=== PATIENT | female | born 2005 | race Caucasian/White ===

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

== ENCOUNTER 2024-01-29 10:53 | Outpatient (CLI) | payer MEDICAID, OTHER ==
[2024-01-29 17:52] LABS: HCT - HEMATOCRIT 36.7 % (37.0-47.0); HGB - HEMOGLOBIN 11.6 g/dL (12.0-16.0); MEAN CORPUSCULAR HEMOGLOBIN 29.6 pg (27.0-31.0); MEAN CORPUSCULAR HGB CONC 31.6 g/dL (32.0-36.0); MEAN CORPUSCULAR VOLUME 93.6 fL (81.0-99.0); MEAN PLATELET VOLUME 11.2 fL (7.9-10.8); RED BLOOD COUNT 3.92 10^6/uL (4.20-5.40); WHITE BLOOD COUNT 13.2 x10^3/uL (4.8-10.8)
== END 2024-01-29 10:54 | disposition home or self-care (01) ==
LOC: LAB.N 10:53
PROVIDERS: ATTEND Obstetrics & Gynecology
DX: Z34.00 Encounter for supervision of normal first pregnancy, unspecified trimester (principal); Z36.8A Encounter for antenatal screening for other genetic defects; Z36.89 Encounter for other specified antenatal screening
CPT/HCPCS: 36415; 82950; 85027

== ENCOUNTER 2024-02-26 22:11 | Emergency (ER) | payer OTHER, MEDICAID ==
[2024-02-26 23:07] LABS: RAPID STREP SCREEN Negative (Negative)
[2024-02-26 23:51] LABS: B. PARAPERTUSSIS- RESP PCR PAN NOT DETECTED; B. PERTUSSIS- RESP PCR PANEL NOT DETECTED; C. PNEUMONIAE- RESP PCR PANEL NOT DETECTED; CORONAVIRUS 229E-RESP PCR NOT DETECTED; CORONAVIRUS HKU1-RESP PCR NOT DETECTED; CORONAVIRUS NL63-RESP PCR NOT DETECTED; CORONAVIRUS OC43-RESP PCR NOT DETECTED; HUMAN METAPNEUMOVIRUS NOT DETECTED; INFLUENZA A- RESP PCR PANEL NOT DETECTED; INFLUENZA B - RESP PCR PANEL NOT DETECTED; M. PNEUMONIAE- RESP PCR PANEL NOT DETECTED; PARAINFLUENZA VIRUS 1 NOT DETECTED; PARAINFLUENZA VIRUS 2 NOT DETECTED; PARAINFLUENZA VIRUS 3 NOT DETECTED; PARAINFLUENZA VIRUS 4 NOT DETECTED; RHINOVIRUS/ENTEROVIRUS NOT DETECTED; RSV- RESP PCR PANEL NOT DETECTED
[2024-02-26 23:52] LABS: SARS-CoV-2 -RESP PCR PANEL DETECTED
--- NOTE | 2024-02-26 23:56 | ED Physician Documentation ---
History of Present Illness - Stated complaint Stated Complaint: SORE THROAT/COUGH - Chief complaint Chief Complaint: Heent - History obtained from History obtained from: Patient - Additonal information Additional information: 18yF currently p/w URI symptoms X 2-3 days without fever. sore throat, cough. PD PAST MEDICAL HISTORY - Past Medical History Past Medical History: Yes Cardiovascular: None Respiratory: None Neuro: None Endocrine/Autoimmune: None GI: None : None HEENT: None, Other Psych: Depression, Anxiety Musculoskeletal: None Derm: None Other Past Medical History: tonsilitis. 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 - Allergies Allergies/Adverse Reactions: Allergies Allergy/AdvReac Type Severity Reaction Status Date / Time aspirin Allergy Unknown Verified 02/26/24 22:27 Penicillins Allergy Unknown Verified 02/26/24 22:27 - Social History Does the pt smoke?: No Smoking Status: Never smoker Does the pt drink ETOH?: No Does the pt have substance abuse?: No - Immunizations Immunizations are current?: Yes - POLST Patient has POLST: No PD ED PE NORMAL - Vitals Vital signs reviewed: Yes - General General: Alert and oriented X 3, No acute distress, Well developed/nourished - HEENT HEENT: Atraumatic, PERRL, EOMI - Neck Neck: Supple, no meningeal sign - Cardiac Cardiac: RRR - Respiratory Respiratory: No respiratory distress, Clear bilaterally - Abdomen Abdomen: Non tender, Non distended, Other (gravid uterus. heart tones within normal limits) - Derm Derm: Normal color, Warm and dry Results - Vitals Vitals: Vital Signs - 24 hr 02/26/24 02/26/24 22:23 23:33 Temperature 36.5 C 36.2 C L Heart Rate 130 H 108 H Respiratory 18 18 Rate Blood Pressure 129/77 118/68 O2 Saturation 98 99 Oxygen O2 Source Room air - Labs Labs: Laboratory Tests 02/26/24 02/26/24 22:30 22:30 Nasal Adenovirus (PCR) NOT DETECTED Nasal B. parapertussis DNA (PCR) NOT DETECTED Nasal Coronavir 229E PCR NOT DETECTED Nasal Coronavir HKU1 PCR NOT DETECTED Nasal Coronavir NL63 PCR NOT DETECTED Nasal Coronavir OC43 PCR NOT DETECTED Nasal Enterovir/Rhinovir PCR NOT DETECTED Nasal Influenza B PCR NOT DETECTED Nasal Influenza A PCR NOT DETECTED Nasal Parainfluen 1 PCR NOT DETECTED Nasal Parainfluen 2 PCR NOT DETECTED Nasal Parainfluen 3 PCR NOT DETECTED Nasal Parainfluen 4 PCR NOT DETECTED Nasal RSV (PCR) NOT DETECTED Nasal B.pertussis DNA PCR NOT DETECTED Nasal C.pneumoniae (PCR) NOT DETECTED [place] Human Metapneumo PCR NOT DETECTED Nasal M.pneumoniae (PCR) NOT DETECTED Nasal SARS-CoV-2 (PCR) DETECTED A Group A Strep Rapid Negative PD Medical Decision Making - ED course ED course: 18yF p/w viral uri X 2-3 days, found to have covid. symptomatic care discussed. return precautions given. plan to f/u with pcp. Departure - Departure Disposition: 01 Home, Self Care Clinical Impression: Viral URI with cough, COVID Condition: Stable Instructions: ED Viral Syndrome Comments: You are seen in the emergency department for COVID, a viral upper respiratory infection. Please follow-up with your primary care provider and with your employer for further recommendations. At a minimum you should have 24 hours with improving symptoms and with no fever before returning to work. Forms: PCP List, Activity restrictions Discharge Date/Time: 02/26/24 23:59
[2024-02-27 00:03] VITALS: BP 118/68; O2SAT 99
== END 2024-02-26 23:59 | disposition home or self-care (01) ==
LOC: ED 22:11
DX: O98.519 Other viral diseases complicating pregnancy, unspecified trimester (principal); U07.1 COVID-19; O99.519 Diseases of the respiratory system complicating pregnancy, unspecified trimester; J06.9 Acute upper respiratory infection, unspecified
CPT/HCPCS: 87070; 87430; 87633; 99282; 99283

== ENCOUNTER 2024-03-31 12:46 | Outpatient (CLI) | payer OTHER, MEDICAID ==
--- NOTE | 2024-03-31 16:14 | Ultrasound Report ---
PROCEDURE: OB Follow up INDICATIONS: EXCESSIVE WEIGHT GAIN IN OUTSIDE/PRIOR DATING DATA: Last menstrual period (LMP): 07/25/2023. LMP-based estimated date of delivery (MARCO): 04/30/2024. First dating scan (date and location): 09/17/2023. Estimated date of delivery (MARCO) from first dating scan: 04/27/2024. The below data below was generated using the LMP MARCO of 09/30/2023 TECHNIQUE: Real-time scanning was performed of the fetus, with image documentation and biometric measurements. Endovaginal scanning: Not performed. COMPARISON: 12/11/2023 FINDINGS: General: A single living intrauterine gestation is present. Presentation: Vertex Placenta: Placental position is posterior, without previa. Amniotic fluid index: 18.1 cm, within normal limits for gestational age. (73rd percentile) heart rate: 141 beats per minute. Maternal cervical canal: 3.5 cm long; normal length is 2.5 cm or more. biometrics: Biparietal diameter: 9.07 cm, 36 weeks and 5 days (83rd percentile) Head circumference: 32.17 cm, 36 weeks and 2 days (32nd percentile) Abdominal circumference: 32.78 cm, 36 weeks and 5 days (84th percentile) Femur length: 7.49 cm, 38 weeks and 2 days (95th percentile) Estimated gestational age from initial scan: 3106.5 g correlating with the 85th percentile for gestat ional age Composite gestational age from present scan: 37 weeks and 0 days Estimated weight and percentile: 35 weeks and 5 days Measurement variability in biometric dating: +/- 10 days from 12-20 weeks gestation, +/- 2 weeks from 20-30 weeks gestation, +/- 3 weeks at 30 weeks gestation or more. Other: Not applicable. IMPRESSION: Single living intrauterine gestation with estimated sonographic gestational age of approximately 37 w eeks and 0 days. Estimated weight of approximately 3106.5 g correlating with the 85th percentil e for gestational age. Normal/expected interval growth has occurred. Four-quadrant KETTY measuring 18.1 cm with largest vertical pocket measuring 6.7 cm. Reviewed by: Severino Morales MD on 03/31/2024 4:12 PM PDT Approved by: Severino Morales MD on 03/31/2024 4:12 PM PDT Station ID: [id number]
== END 2024-03-31 12:47 | disposition home or self-care (01) ==
LOC: DI 12:46
PROVIDERS: ATTEND Nurse Practitioner
DX: O26.03 Excessive weight gain in pregnancy, third trimester (principal); Z3A.37 37 weeks gestation of pregnancy

== ENCOUNTER 2024-04-01 15:09 | Outpatient (CLI) | payer OTHER, MEDICAID ==
[2024-04-01 16:25] LABS: RUPTURE OF MEMBRANES PLUS NEGATIVE (NEGATIVE)
--- NOTE | 2024-04-01 16:35 | PROVIDER PROGRESS NOTE ---
- HPI Chief Complaint: Labor - Procedures OB Procedure Performed: NST Diagnosis/Indication for NST: labor NST Procedure: EFM: 150s, moderate variability, positive 15x15 accelerations, no decelerations [place]: occasional contractions NST reactive/Cat 1 Performed and read 04/01/24 Service Date of procedure: 04/01/24 - Plan Plan: 19yo at 35.6w presenting with concern of leaking fluid. She thought she had a gush last night but none today. Occasional contractions, no bleeding. Good movement. care at [facility]. VSS GEN: NAD Abd: gravid Ext: no edema Speculum: white discharge, no pooling, no bleeding, cervix appears closed Rupture negative 19yo at 35.6w, false labor - Membranes intact, NST reactive - Discharge, follow up as scheduled 04/15. Labor precautions
[2024-04-01 17:05] VITALS: BP 114/65
== END 2024-04-01 16:40 | disposition home or self-care (01) ==
LOC: WFO 15:09 → FBP 15:19 → WFO 16:40
PROVIDERS: ATTEND Obstetrics & Gynecology
DX: O47.03 False labor before 37 completed weeks of gestation, third trimester (principal); Z3A.35 35 weeks gestation of pregnancy
CPT/HCPCS: 59025; 84112; 99214

== ENCOUNTER 2024-04-15 08:00 | Outpatient (CLI) | payer OTHER | END 2024-04-15 23:59 | disposition home or self-care (01) | LOC: LAB.WC 08:00 | PROVIDERS: ATTEND Nurse Practitioner | DX: Z36.85 Encounter for antenatal screening for Streptococcus B (principal) | CPT/HCPCS: 87797 ==

== ENCOUNTER 2024-04-24 00:31 | Inpatient (IN) | payer OTHER ==
[2024-04-24] MEDS ORDERED: ONDANSETRON 4 MG/2 ML VIAL IVP PRN (03:44)
[2024-04-24] MEDS ORDERED: miSOPROStoL 200 MCG TABLET BC PRN (03:44)
[2024-04-24] MEDS ORDERED: LACTATED RINGERS 1,000 ML IV PRN (03:44)
[2024-04-24] MEDS ORDERED: LABETALOL 20 MG/4 ML SYRINGE IVP PRN ×3 (03:44)
[2024-04-24] MEDS ORDERED: TRANEXAMIC ACID IN NACL 1,000 MG/100 ML BAG IV PRN (03:44)
[2024-04-24] MEDS ORDERED: hydrALAZINE INJ 20 MG/ML VIAL IVP PRN ×2 (03:44)
[2024-04-24] MEDS ORDERED: miSOPROStoL 200 MCG TABLET PR PRN (03:44)
[2024-04-24] MEDS ORDERED: CARBOPROST TROMETHAMINE 250 MCG/ML VIAL IM PRN (03:44)
[2024-04-24] MEDS ORDERED: METHYLERGONOVINE 0.2 MG/ML VIAL IM PRN (03:44)
[2024-04-24] MEDS ORDERED: TERBUTALINE 1 MG/ML VIAL SUBQ PRN (03:44)
[2024-04-24] MEDS ORDERED: NIFEdipine 10 MG CAPSULE PO PRN (03:44)
[2024-04-24] MEDS ORDERED: SODIUM CHLORIDE FLUSH 0.9% 10 ML SYRINGE IVP PRN (03:44)
[2024-04-24] MEDS ORDERED: OXYTOCIN 10 UNIT/ML VIAL IM PRN (03:44)
[2024-04-24] MEDS ORDERED: fentaNYL 100 MCG/2 ML VIAL IVP PRN (03:44)
[2024-04-24] MEDS ORDERED: lidocaine 1% 20 ML MDV ID PRN (03:44)
[2024-04-24] MEDS ORDERED: SODIUM CHLORIDE FLUSH 0.9% 10 ML SYRINGE IVP SCH (04:00)
[2024-04-24 04:25] LABS: BASOPHILS % (AUTO) 0.2 %; EOSINOPHILS % (AUTO) 0.5 %; HCT - HEMATOCRIT 36.2 % (37.0-47.0); HGB - HEMOGLOBIN 11.8 g/dL (12.0-16.0); LYMPHOCYTES % (AUTO) 11.5 %; MEAN CORPUSCULAR HEMOGLOBIN 28.2 pg (27.0-31.0); MEAN CORPUSCULAR HGB CONC 32.6 g/dL (32.0-36.0); MEAN CORPUSCULAR VOLUME 86.6 fL (81.0-99.0); MEAN PLATELET VOLUME 10.7 fL (7.9-10.8); MONOCYTES % (AUTO) 4.4 %; NEUTROPHILS % (AUTO) 82.9 %; PLT - PLATELET COUNT 417 10^3/uL (130-450); RED BLOOD COUNT 4.18 10^6/uL (4.20-5.40); RED CELL DISTRIBUTION WIDTH 13.4 % (12.0-15.0); WHITE BLOOD COUNT 22.2 x10^3/uL (4.8-10.8)
[2024-04-24 04:30] LABS: SLIDE REVIEW? Indicated
--- NOTE | 2024-04-24 04:30 | HISTORY & PHYSICAL EXAMINATION ---
Admit History - Smoking Status: Never smoker - Other Maternal History Other Maternal History: HPI: This 19 yo @ 39+1 weeks by LMP and confirmed by 8+1 week ultrasound. She had been cramping on and off since afternoon and feeling exhausted and had a mild migraine, took a nap from about [id number] when she was woken up with the intensity of the contractions. She did some early labor at home and came into the hospital just after midnight for labor triage. Upon arrival her cervix was 3/90/0 and vertex with intact membranes. She ambulated x2 hours and continued to contract every 2-3 minutes and her cervix changed to 3.5/90/0. We reviewed management options at length and patient desires admission for labor support and expectant management at this time. She has been a patient of [facility] care for the duration of her which has remained uncomplicated with the exception of excessive maternal weight gain. Notably, she has a history of Molar in 2020. ROS: Had a migraine yesterday early afternoon. No visual changes or right upper quadrant abdominal pain. Denies significant N/V. Denies urinary urgency or dysuria. All other symptoms reviewed and were negative except per HPI. In the event of an emergency, accepts the administration of blood products. Recent BP: 121/68 Labs: 11.8/36.2%, PLT 417 Last u/s EFW: 3106.5g, 85% @ 37weeks Total maternal weight gain: 79# OB Hx: G1: 2020 Molar G2: Current Medical Hx: Anxiety, depression Surgical Hx: Suction D&C 07/04/2021 Social Hx: Monogamous with male partner. Stopped vaping with positive test. Denies current use of alcohol or tobacco, marijuana or other recreational drugs. Reports that she is safe in current relationship. Family Hx: Denies family history of congenital anomalies, Cystic Fibrosis or c hromosomal abnormalities Allergies: Penicillin, Aspirin Medications: Vitamins COURSE FOB: Sincere Person Sex: It's a Girl!!! - Simona Hx of Molar Aspirin Allergy- unable to start LDASA Pre- Weight: 109 BMI: 17.79 Blood type: B+ Rh: positive Antibody: Negative CBC: PLT 318 HCT 37.9 HGB 12.9 RUB: Immune VZV: Immune HBsAg: Negative HepC: NR RPR/AB-EIA: NR HIV: NR PAP: never done (age 18) GC/CT: 10/14- Negative HSV: denies Genetic testin10/15/23 [id number] AFP- Covid: vaccinated Flu: no FAS: WNL EFW 83% 3 VC Posterior placenta without previa KETTY normal (12.1cm) 50gm OGCT: 109 3HR GTT: TDAP: 02/01 Breast Pump: 02/01 3rd trimester PLT 291 HGB 11.6 HCt 36.7 GBS: Negative Delivery plan: Anticipate SVE preference form: Given 02/16/2024 Contraception: likely POP/ depo Physical exam: Normocephalic, atraumatic Heart RRR w/o M/G/R Lungs CTAB Abdomen gravid, soft, nontender. EFW 3700 FHR baseline 130-140's, moderate variability, + accelerations, no decelerations Contractions palpate moderate every 2-3 minutes with soft resting tone SVE 3.5/90/0 , vertex, membranes intact Bilateral LE's no edema Mood is good. Assessment: 19 yo @ 39+1 weeks gestation by 8+1 wk U/S Early labor FHR 130-140 Cat I GBS Negative Plan: Admit to [facility] for expectant management Intermittent heart rate auscultation. Transition to continuos monitoring as indicated. Jacuzzi PRN. Nitrous oxide PRN. Epidural PRN Maternal Request. Anticipate . Patient verbally consents to my participation in her care in my role as a student nurse toy mechanic. JAZMÍN Pearce, Student Nurse Hazardous Material Technician - [facility] Vital Signs Temperature 36.6 C 04/24/24 00:43 Heart Rate 96 04/24/24 00:43 Respiratory Rate 04/24/24 00:43 Blood Pressure 121/68 04/24/24 00:43 Temperature 36.6 C 04/24/24 00:43 Heart Rate 96 04/24/24 00:43 Respiratory Rate 04/24/24 00:43 Blood Pressure 121/68 04/24/24 00:43 O2 Saturation If not protocol: Oxygen Flow, liters/minute - NST Procedure NST Procedure Start Time 15:25 Stop Time 15:56 Meds/Allgy - Allergies Allergies/Adverse Reactions: Allergies Allergy/AdvReac Type Severity Reaction Status Date / Time aspirin Allergy Unknown Verified 02/26/24 22:27 Penicillins Allergy Unknown Verified 02/26/24 22:27 Physical - Abdominal Exam Vital Signs: Temp Pulse Resp BP Pulse Ox O2 Flow Rate 36.6 C 96 20 121/68 04/24/24 00:43 04/24/24 00:43 04/24/24 00:43 04/24/24 00:43 Plan for Labor - Plan For Labor I expect patient to be DC'd or transferred within 96 hours.: Yes
[2024-04-24 04:31] LABS: ABNORMAL LYMPHS % (MANUAL) 0 %; BAND NEUTROPHILS % (MANUAL) 0 %
[2024-04-24 04:51] LABS: LYMPHOCYTES # (MANUAL) 4.2 10^3/uL (1.5-3.5); LYMPHOCYTES % (MANUAL) 19 %; MONOCYTES # (MANUAL) 0.4 10^3/uL (0.0-1.0); NEUTROPHILS # (MANUAL) 17.5 10^3/uL (1.5-6.6)
[2024-04-24 04:52] LABS: DIFFERENTIAL COMMENT MANUAL DIFFERENTIAL; PLATELET ESTIMATE, MANUAL NORMAL (130-450,000) (NORMAL); PLATELET MORPHOLOGY NORMAL APPEARANCE (NORMAL); RBC MORPHOLOGY (MULTIPLE) NORMAL APPEARANCE (NORMAL); WBC MORPHOLOGY (MULTIPLE) NORMAL APPEARANCE (NORMAL)
[2024-04-24] MEDS: diphenhydrAMINE 25 MG CAPSULE PO PRN (05:55)
[2024-04-24] MEDS ORDERED: LIDOCAINE 2%-EPI 1:100000 20 ML MDV ONE (06:30)
[2024-04-24] MEDS ORDERED: ROPIVACAINE 0.2% 200 MG/100 ML BAG EP ONE (06:31)
[2024-04-24] MEDS: LACTATED RINGERS 1,000 ML IV SCH (07:16)
[2024-04-24] MEDS ORDERED: ePHEDrine 50 MG/ML VIAL IVP PRN (07:16)
[2024-04-24] MEDS ORDERED: NALOXONE 0.4 MG/ML VIAL IVP PRN (07:16)
--- NOTE | 2024-04-24 07:16 | ANESTHESIA ---
Pre-Anesthesia VS, & Labs - Diagnosis active labor - Procedure vaginal delivery Vital Signs: Temp Pulse Resp BP Pulse Ox O2 Flow Rate 36.9 C 102 H 18 110/70 04/24/24 04:47 04/24/24 04:47 04/24/24 04:47 04/24/24 04:47 Height: 5 ft 6 in Weight (kg): 85.275 kg Body Mass Index: 30.3 BMI Classification: Obese - NPO Last Fluid Intake: clear liquids - Is Patient ?: Yes - Lab Results Current Lab Results: Laboratory Tests 04/24/24 04:00: WBC 22.2 H, RBC 4.18 L, Hgb 11.8 L, Hct 36.2 L, MCV 86.6, MCH 28.2, MCHC 32.6, RDW 13.4, Plt Count 417, MPV 10.7, Neut # (Auto) Not Reportable, Lymph # (Auto) Not Reportable, [place] # (Auto) Not Reportable, Eos # (Auto) Not Reportable, Baso # (Auto) Not Reportable, Absolute Nucleated RBC Not Reportable, Total Counted 100, Band Neuts % (Manual) 0, Abnorm Lymph % (Manual) 0, Nucleated RBC % Not Reportable, Neutrophils # (Manual) 17.5 H, Lymphocytes # (Manual) 4.2 H, Monocytes # (Manual) 0.4, Eosinophils # (Manual) 0.0, Basophils # (Manual) 0.0, Differential Comment MANUAL DIFFERENTIAL, Manual Slide Review Indicated, WBC Morphology NORMAL APPEARANCE, Platelet Estimate NORMAL (130- 450,000), Platelet Morphology NORMAL APPEARANCE, RBC Morph Micro Appear NORMAL APPEARANCE 04/24/24 04:00: Blood Type B POSITIVE, Antibody Screen NEGATIVE Lab results reviewed: Yes Fish Bones: 04/24/24 04:00 Home Medications and Allergies Active Medications Acetaminophen (Acetaminophen 500 Mg Tablet) 1,000 mg PO Q8H PRN PRN Reason: Mild Pain or Fever>38C(100.4F) Carboprost Tromethamine (Carboprost Tromethamine 250 Mcg/Ml Vial) 250 mcg IM .ONCE PRN PRN Reason: Hemorrhage Diphenhydramine HCl (Diphenhydramine 25 Mg Capsule) 25 mg PO Q4HR PRN PRN Reason: Restlessness Last Admin: 04/24/24 05:55 Dose: 25 mg Fentanyl (Fentanyl 100 Mcg/2 Ml Vial) 50 mcg IVP Q1H PRN PRN Reason: Severe Pain (score 7-10) Hydralazine HCl (Hydralazine Inj 20 Mg/Ml Vial) 5 - 10 mg IVP Q20M PRN; Protocol PRN Reason: SBP> or= 160 OR DBP> or= 110 Hydralazine HCl (Hydralazine Inj 20 Mg/Ml Vial) 10 mg IVP .ONCE PRN; Protocol PRN Reason: SBP> or= 160 OR DBP> or= 110 Lactated Ringer's (Lr) 500 mls @ 999 mls/hr IV PRN PRN PRN Reason: intolerance of labor Oxytocin/Sodium Chloride (Pitocin/Sodium Chloride) 500 mls @ 999 mls/hr IV PRN PRN; Protocol PRN Reason: POST- HEMORR PREVENTION Tranexamic Acid (Tranexamic 1,000 Mg/100ml-Nacl) 1,000 mg in 100 mls @ 600 mls/hr IV Q30M PRN PRN Reason: EBL >1200mL and within 3hr Lactated Ringer's (Lr) 1,000 mls @ 125 mls/hr IV .Q8H TOMA Labetalol HCl (Labetalol 20 Mg/4 Ml Syringe) 20 - 80 mg IVP Q10M PRN; Protocol PRN Reason: SBP> or= 160 OR DBP> or= 110 Labetalol HCl (Labetalol 20 Mg/4 Ml Syringe) 20 mg IVP .ONCE PRN; Protocol PRN Reason: SBP> or= 160 OR DBP> or= 110 Labetalol HCl (Labetalol 20 Mg/4 Ml Syringe) 20 - 40 mg IVP Q10M PRN; Protocol PRN Reason: SBP> or= 160 OR DBP> or= 110 Lidocaine HCl (Lidocaine 1% 20 Ml Mdv) 20 ml ID .ONCE PRN PRN Reason: PERINEAL REPAIR Stop: 04/27/24 03:44 Methylergonovine Maleate (Methylergonovine 0.2 Mg/Ml Vial) 0.2 mg IM .ONCE PRN PRN Reason: Hemorrhage Misoprostol (Misoprostol 200 Mcg Tablet) 600 mcg BC .ONCE PRN PRN Reason: Hemorrhage Misoprostol (Misoprostol 200 Mcg Tablet) 800 mcg [place] .ONCE PRN PRN Reason: Hemorrhage Nifedipine (Nifedipine 10 Mg Capsule) 10 - 20 mg PO Q20M PRN; Protocol PRN Reason: SBP> or= 160 OR DBP> or= 110 Ondansetron HCl (Ondansetron 4 Mg/2 Ml Vial) 4 mg IVP PRN PRN PRN Reason: Nausea / Vomiting Oxytocin (Oxytocin 10 Unit/Ml Vial) 10 unit IM .ONCE PRN PRN Reason: Step One if no IV access. Sodium Chloride (Sodium Chloride Flush 0.9% 10 Ml Syringe) 10 ml IVP PRN PRN PRN Reason: NEEDED PER PROVIDER ORDERS Sodium Chloride (Sodium Chloride Flush 0.9% 10 Ml Syringe) 10 ml IVP Q8H TOMA Terbutaline Sulfate (Terbutaline 1 Mg/Ml Vial) 0.25 mg SUBQ .ONCE PRN PRN Reason: Tachystole Allergies/Adverse Reactions: Allergies Allergy/AdvReac Type Severity Reaction Status Date / Time aspirin Allergy Unknown Verified 02/26/24 22:27 Penicillins Allergy Unknown Verified 02/26/24 22:27 Anes History & Medical History - Anesthetic History Anesthesia Complications: reports: No previous complications - Medical History Cardiovascular: reports: None Pulmonary: reports: None Gastrointestinal: reports: None Urinary: reports: None Neuro: reports: None Musculoskeletal: reports: None Endocrine/Autoimmune: reports: None Blood Disorders: reports: None Skin: reports: None Smoking Status: Former smoker Psychosocial: reports: No issues indicated History of Cancer?: No - Surgical History Gynecologic: reports: Dilation and currettage - Obstetrical History : 2 Parity: 0 Events: reports: None Complications: reports: None Exam General: Alert, Oriented x3, Cooperative, No acute distress Dental: WNL Mouth Openin Fingerbreadth Neck Mobility: Normal Mallampati classification: II Thyromental Distance: 4-6 cm Mental/Cognitive Status: Alert/Oriented X3, Normal for patient Plan Anesthesia Type: Epidural Consent for Procedure(s) Verified and Reviewed: Yes Code Status: Attempt Resuscitation ASA classification: 2-Mild systemic disease Is this case an emergency?: No
--- NOTE | 2024-04-24 08:10 | PHARMACY PROGRESS NOTE ---
- Best Possible Medication History Admit Date and Time: 04/24/24 0330 Processed by: Pharmacy As the person ultimately responsible for medication therapy, providers are able to order a medication from an existing home medication list in [facility] via the "Reconcile Routine" prior to Confirmation of that medication by ground support equipment assembler. Such practice is discouraged except when the physician, in their clinical judgment, deems that a medical need exists for a medication without regard to previous use.
[2024-04-24] MEDS: OXYTOCIN/SODIUM CHLORIDE 500 ML IV SCH (10:35)
--- NOTE | 2024-04-24 10:44 | PROVIDER PROGRESS NOTE ---
Labor Progress Note - Labor Progress Note Labor Progress Note/Additional Text: S: left side lying. Comfortable with epidural. Did get some rest since epidural placement just after 0700 this morning. She was able to get a little sleep after. Tolerating position changes, coping well, understands situation after our discussions, feels well informed. Frustrated labor has taken so much times. States desire for augmentation to help accelerate the process. O: FHR baseline 135-145, minimal to moderate variability, 10x10 (but not 15x15) accels, no significant decels. Contractions 3.5-5 minutes palpate moderately with soft resting tone. SVE 6/90/0, anterior. Vertex. Membranes intact. S/p spontaneous onset of labor A: 19yo @ 39+1wks gestation by LMP c/w 8+1 wk U/S FHR 135-145, primary category Category I GBS neg Hx of molar P: AROM, large amount of clear fluid. Begin pitocin at 2mu/min and titrate per unit policy to adequate labor contraction pattern. Will plan to reassess for cervical change in 3-4 hours. Sooner if indicated. Continuous monitoring. Maintain epidural for pain management. encourage rotations in bed on peanut ball Anticipate . Will send placenta to pathology given hx of molar . JAZMÍN Pearce, Student Nurse Systems Programmer Analyst
[2024-04-24] MEDS: ROPIVACAINE 0.2% 200 MG/100 ML BAG EP PRN (12:57)
[2024-04-24] MEDS: OXYTOCIN/SODIUM CHLORIDE 500 ML IV PRN (14:20)
[2024-04-24] MEDS: ACETAMINOPHEN 500 MG TABLET PO PRN (15:04)
--- NOTE | 2024-04-24 15:38 | DELIVERY NOTE ---
Delivery Note - Delivery Comments (Free Text/Narrative) Delivery Comments (Free Text/Narrative): Labor course: This 19 -year-old, @39+1 weeks gestation by LMP and confirmed by 8+1 week ultrasound presented just after 00:00 on 04/24/2024 in early labor an d in good condition. Cervix was 3.5/90/0 and Vertex presentation by exam. GBS negative. Epidural placed upon maternal request shortly after 07:00. AROM (clear) at 10:04 followed by oxytocin maximum infusion rate of 6 mu/Min for labor augmentation. Normal labor course. FHR pattern demonstrated 140s -150s baseline and primarily a category I-II prior to second stage. She then progressed to complete/complete @ 1340 and second stage began. : Normal spontaneous vaginal delivery of a viable female on 04/24/2024 @ 1418. The was placed on maternal abdomen, stimulated, dried and placed skin to skin. Apgars 8 & 9 @ 1 & 5 minutes. The umbilical cord was allowed to stop pulsating at which time it was doubly clamped by delivering provider and cut by FOB. 3VC. Cord blood was obtained. Third Stage: Fundal massage and gently cord traction applied for active management of the third stage, placenta delivered spontaneously and intact and appeared normal @ 1426. EBL 250cc. Given history of molar , placenta was sent to pathology. Pitocin added to the IV fluid and allowed to run freely for hemostasis and. Uterine massage was performed until uterus was deemed firm. Fourth Stage: Inspection of the perineum noted a second degree midline lacerations. Repair under adequate epidural anesthesia with running suture of 3- 0 vicryl rapide. Repaired completed under sterile conditions and in standard fashion. Upon re-inspection the patient was hemostatic. Uterus again massaged and found to be firm. Needle and sponge counts were correct. Uterine fundus firm and there is no excessive bleeding. Tissues well approximated. Skin to skin initiated. Family bonding well. Both mother and baby are in stable condition. Patient verbalized consent for my participation in her delivery in my role as Student Nurse Machine Operator. JAZMÍN Pearce, Student Nurse Machine Operator
[2024-04-24] MEDS: IBUPROFEN 800 MG TABLET PO SCH (15:40)
[2024-04-24] MEDS: HYDROCORTISONE 1% CREAM 28 GM TUBE PR PRN (22:42)
[2024-04-24] MEDS: DOCUSATE SODIUM 100 MG CAPSULE PO SCH (22:43)
[2024-04-24] MEDS: WITCH HAZEL/GLYCERIN 1 PAD TOP PRN (22:43)
[2024-04-25 09:17] VITALS: O2SAT 100
--- NOTE | 2024-04-25 10:51 | DISCHARGE SUMMARY ---
Discharge Summary - HOSPITAL COURSE Hospital Course: Date of Admission: 04/24/2024 Date of Discharge: 04/25/2024 Diagnosis on admission: 1. 19 yo @ 39+1 weeks gestation by 8+1 wk U/S 2. Early labor 3. FHR 130-140 Cat I 4. GBS Negative 5. Blood Type: B+ Diagnosis on Discharge 1. 19 yo S/P @ 39+1 weeks gestation 04/24/2024 @ 1418 2. PPD #1 3. S/P Second degree perineal laceration with repair 4. Normal uterine involution and lochia 5. Breast and bottle feeding. Physical exam: Normocephalic, atraumatic Heart RRR w/o M/G/R Lungs CTAB FF below umbilicus Small rubra bleeding Mild perineal discomfort relieved with IBU and topical comfort measures Bilateral LE's 1+ pedal edema Very tired but mood is overall good. Brief History: She is a patient of [facility] who presented on 04/24/2024 with complaints of contractions. She was found to be jewell regularly. Labor progressed with minimal augmentation (AROM and pitocin at max dose of 6mu/min). Her pain was well anaged with epidural anesthesia. She spontaneously delivered a beautiful viable female apgars 8&9 at 1&5 minutes respectively on 04/24/2024 @ 1418. EBL 250 ml. intact perineum. weight: 3711g. Pediatrics was present at delivery given category II tracing prior to second stage. Placenta was sent to pathology given history of molar . She has been doing well in her course. She is ambulating and tolerating a regular diet. She is urinating without difficulty and her lochia is normal. Her pain is well controlled without narcotic management. She will be discharged to home today on day #1 and encouraged IBU, tylenol and stool softeners PRN. She intends to follow up with [facility]. A 1 week hosptial folllow-up has been scheduled for her as a telehealth appointment with myself 04/29/2024 @ 1300. She has been given precautions to call if she has any new or worsening sx such as fevers, chills, abdominal pain, increasing bleeding, or foul smelling vaginal lochia. preeclamptic precautions reviewed as well. VZV: Immune Rubella: Immune RH: Positive JAZMÍN Pearce, Student Nurse Male Impersonator - ALLERGIES Allergies/Adverse Reactions: Allergies Allergy/AdvReac Type Severity Reaction Status Date / Time aspirin Allergy Unknown Verified 02/26/24 22:27 Penicillins Allergy Unknown Verified 02/26/24 22:27 - MEDICATIONS Home Medications: Ambulatory Orders Medication Instructions Recorded Confirmed Pnv 119/Iron Fum/Folic Acid 1 each PO DAILY 04/24/24 04/24/24 [ 19 Tablet] - LABS Result Diagrams: 04/24/24 04:00
--- NOTE | 2024-04-25 10:52 | Discharge Plan ---
Discharge Plan Problem Reviewed?: Yes Disposition: Home, Self Care Condition: Good Diet: Regular Activity Restrictions: No Restrictions Shower Restrictions: No Driving Restrictions: No Instruction Topics: Vaginal, Self Care, , Breastmilk Storage Additional Instructions or Follow Up instructions: Follow-up appointment will be telehealth With JAZMÍN Duong 04/29/2024 @ approximately 1300. No Smoking: If you smoke, Please STOP! Call for help. Follow-up with: Fern Duong ARNP [Primary Care Provider] -
[2024-04-25 13:12] VITALS: BP 115/59
--- NOTE | 2024-04-25 16:26 | Labor Flowsheet ---
Labor Flowsheet Datetime Report Generated by CPN: 04/25/2024 16:26 Datetime: 04/25/2024 13:01 VITAL SIGNS NBP Sys/Rachelle/Mean (mmHg): 115 : 59 : 72 Pulse: 81 Datetime: 04/24/2024 20:20 SpO2 (%): 98 Datetime: 04/24/2024 16:15 Stage of : Recovery PAIN Pain Scale: 1 Pain Presence: Intermittent Pain Type: Cramping Pain Location: Abdomen Datetime: 04/24/2024 15:15 Pain Relief Measures: Pain Medication Given; Comfort Measures Datetime: 04/24/2024 15:10 Epidural Procedure Other: Cath Removed; Cath Intact Anesthesia Level Check: T7 Datetime: 04/24/2024 15:00 Respirations: 16 Datetime: 04/24/2024 14:45 Pain Assessment Comments: snacks provided Datetime: 04/24/2024 14:24 Membranes Ruptured Date/Time: 04/24/2024 10:04 Datetime: 04/24/2024 14:15 UTERINE ACTIVITY Monitor Mode: External Monitor Interventions for UA: [place] Adjusted Frequency (min): 2-3 Quality: Strong Duration (sec): 70-90 Pattern: Normal: <= 5 Contractions in 10 Minutes Resting Tone (Palpate): Relaxed ASSESSMENT A Monitor Mode: External US FHR Baseline Rate : 155 FHR Baseline Changes: No Baseline Change Variability: Moderate 6-25 bpm Accelerations: 15X15 Decelerations: Early; Variable Actions for Decelerations: Sterile Vaginal Exam; Provider Notified; Other Comments: pushing; @ 1418 LaborFlag: Labor Datetime: 04/24/2024 13:40 VAGINAL EXAM Dilatation (cm): 10.0 Exam by: Fern Datetime: 04/24/2024 13:38 STAGE 2 Pushing: Coached on Pushing Pushing Position: Pushing with Contractions; Pushing Lithotomy Datetime: 04/24/2024 13:35 Patient Position/Activity: Semi-Fowlers I/O Interventions: [place] Discontinued Patient Care Comments: lithotomy for delivery Datetime: 04/24/2024 13:34 COMMUNICATION Communication: Provider at Bedside Datetime: 04/24/2024 13:30 Temperature (C): 37.6 Temperature Route: Oral Datetime: 04/24/2024 13:26 Monitor Interventions for FHR: Ultrasound Adjusted Datetime: 04/24/2024 13:12 Effacement (%): 100 Station: 0 Cervix, Consistency: Soft Cervix, Position: Midposition Datetime: 04/24/2024 12:00 Pitocin Checklist: No More than 1 Late Deceleration Occurred in Past 30 Minutes; No More than 2 [place] iable Decelerations > 60 Seconds in Duration and decreasing >60 bpm in 30 minutes; No More than 5 [place] rine Contractions in 10 Minutes for any 20 Minute Interval; Uterus Palpates Soft between Contractions Datetime: 04/24/2024 11:15 Oxygen Method: Room Air Datetime: 04/24/2024 10:04 Membrane Status: Ruptured Membranes Rupture Method: Artificial Amniotic Fluid Color: Clear Amniotic Fluid Amount: Moderate Amniotic Fluid Odor: Normal Vaginal Bleeding: None Membrane Comments: AROM by rand butting machine operator Fern Datetime: 04/24/2024 09:34 Provider Reviewed Strip: Yes Datetime: 04/24/2024 07:05 Category: Category I Datetime: 04/24/2024 07:04 ANESTHESIA Anesthesia Plans: Epidural Datetime: 04/24/2024 06:52 Anesthesia Comments: bolus dose Datetime: 04/24/2024 06:49 Epidural Procedure: Test Dose Datetime: 04/24/2024 06:35 PROCEDURE TIME OUT Procedure Verify: Correct Patient Identity; Correct Side and Site are Marked; Accurate Procedure Co nsent Form; Agreement on Procedure to be Done; Correct Patient Position Epidural Positioning: Sitting Datetime: 04/24/2024 06:20 Pain Goal: 6 Pain Coping: Requesting Pain Medication or Epidural Datetime: 04/24/2024 06:18 Provider Notified (Name): INSURANCE PROCESSING CLERK [place] Notification Reason: Status Update; Pain; Patient Request Communication Comments: Pt requesting epidural for pain mgmt of labor. Datetime: 04/24/2024 05:55 MEDICATIONS Analgesics/Sedatives: Benadryl (mg) @ 25 Medication Comments: benadryl for restlessness Comfort Measures: Breathing/Relaxation Datetime: 04/24/2024 04:39 Strip Reviewed by: STUDENT TEACHER/CN student [facility] Datetime: 04/24/2024 04:16 MATERNAL ASSESSMENT Level of Consciousness: Alert DTR's/Clonus: DTRs 2+ Headache: Denies Breath Sounds, Left: Clear and Equal Nausea/Vomiting: Denies RUQ Epigastric Pain: Denies TEACHING Instructional Method: Verbal Plan of Care: Plan of Care Discussed Unit Routine: [place] to Room; Call Marcus; Bed Pain Management: Comfort Measures Datetime: 04/24/2024 04:02 PATIENT CARE IV/Blood Work: IV Started Datetime: 04/24/2024 03:15 MAX'S SCORE Dilatation (cm): 3-4 cms Effacement: >80_ effaced Station: minus 1 to 0 Consistency: Soft Position: Midposition Total Max's Score: 10 : 9-14 = Usually no failure for induction Breath Sounds, Right: Clear and Equal Datetime: 04/24/2024 00:45 Vital Sign Comments:
== END 2024-04-25 16:25 | disposition home or self-care (01) | DRG 807 ==
LOC: WFO 00:31 → FBP 00:33 → UNDOADMIN 03:30 → FBP 03:30 → WFO 03:30
PROVIDERS: ADMIT Nurse Practitioner Obstetrics & Gynecology; ATTEND Nurse Practitioner Obstetrics & Gynecology
PROC: 10E0XZZ Delivery of Products of Conception, External Approach (ICD-10-PCS; principal; 2024-04-24)
PROC: 0KQM0ZZ Repair Perineum Muscle, Open Approach (ICD-10-PCS; 2024-04-24)
PROC: 10907ZC Drainage of Amniotic Fluid, Therapeutic from Products of Conception, Via Natural or Artificial Opening (ICD-10-PCS; 2024-04-24)
DX: O70.1 Second degree perineal laceration during delivery (principal); Z37.0 Single live birth; Z3A.39 39 weeks gestation of pregnancy; O26.03 Excessive weight gain in pregnancy, third trimester; Z87.59 Personal history of other complications of pregnancy, childbirth and the puerperium; Z87.891 Personal history of nicotine dependence
CPT/HCPCS: 59409; 85025; 86850; 86900; 86901; 99215; A9270; J7120